=== PATIENT | female | born 1950 | race Caucasian/White ===

== ENCOUNTER 2025-04-22 06:45 | Day surgery (SDC) | payer BC ==
[~2025-04-22 06:45] MED LIST: EPINEPHrine 0.3 MG in Ophthalmic Irrigation Solution 500 ML IRR SCH
[2025-04-22 07:35] LABS: #Basophils 0.07 10x3/uL (0.0-0.2); #Eosinophils 0.57 10x3/uL (0.0-0.7); #Monocytes 0.70 10x3/uL (0.11-0.59); #Neutrophils 3.46 10x3/uL (1.40-6.50); %Basophils 1.2 % (0.0-1.0); %Eosinophils 9.9 % (0.0-10.0); %Lymphocytes 16.6 % (21.0-51.0); %Monocytes 12.1 % (0.0-10.0); %Neutrophils 59.9 % (42.0-75.0); Hematocrit 32.0 % (36.0-47.0); Hemoglobin 9.9 g/dL (12.0-16.0); Mean Corpuscular Hemoglobin 29.7 pg (27.0-31.0); Mean Corpuscular Volume 96.1 fL (78.0-98.0); Platelet Count 182 10x3/uL (130-400); Red Blood Cell (RBC) Count 3.33 mill/uL (4.20-5.40); White Blood Cell (WBC) Count 5.78 10x3/uL (4.8-10.8)
[2025-04-22] MEDS ORDERED: Cyclopentolate 1% Opth Drop 2 ML BOT ONE (07:40)
[2025-04-22 07:50] LABS: Anion Gap 17 mmol/L (10-20); BUN (Urea Nitrogen) 77 mg/dL (9.8-20.1); Calc. Creatinine Clearance 0 mL/min (70-130); Calcium 9.2 mg/dL (7.8-10.44); Carbon Dioxide 23 mmol/L (23-31); Chloride 106 mmol/L (98-107); Glucose 86 mg/dL (83-110); Potassium 3.3 mmol/L (3.5-5.1); Sodium 143 mmol/L (136-145)
[2025-04-22] MEDS ORDERED: Lidocaine 1% PF 5 ML VIAL ONE ×2 (08:30→09:11)
[2025-04-22] MEDS ORDERED: Maxitrol 0.1% Opth Oint 3.5 GM TUBE ONE (09:11)
[2025-04-22] MEDS ORDERED: CEFAZOLIN 1 GM VIAL ONE (09:11)
[2025-04-22] MEDS ORDERED: Lidocaine 4% PF 5 ML AMP ONE (09:11)
[2025-04-22] MEDS ORDERED: PROPOFOL 200 MG/20 ML VIAL ONE (09:11)
== END 2025-04-22 10:13 | disposition home or self-care (01) ==
LOC: SDC 06:45
PROVIDERS: ATTEND Ophthalmology Retina Specialist
PROC: 08B43ZZ Excision of Right Vitreous, Percutaneous Approach (ICD-10-PCS; principal; 2025-04-22)
DX: H43.11 Vitreous hemorrhage, right eye (principal); E78.5 Hyperlipidemia, unspecified; I11.0 Hypertensive heart disease with heart failure; I50.9 Heart failure, unspecified; Z79.899 Other long term (current) drug therapy; Z88.1 Allergy status to other antibiotic agents
CPT/HCPCS: 36415; 80048; 85025; 93005; 93010; J0166; J0690; J2250; J2704; J3010; J3301; J3490